=== PATIENT | female | born 1955 | race Caucasian/White ===

== ENCOUNTER 2019-07-10 22:18 | Emergency (ER) | payer MEDICAID ==
[~2019-07-10] VITALS: Ht 152.4 cm; Wt 81.6 kg
[2019-07-10 22:33] VITALS: Ht 152.4 cm; Wt 81.6 kg
[2019-07-11 01:57] VITALS: BP 131/76
== END 2019-07-11 01:57 | disposition home or self-care (01) ==
LOC: ED 22:18
DX: M54.42 Lumbago with sciatica, left side (principal); M19.90 Unspecified osteoarthritis, unspecified site; Z98.890 Other specified postprocedural states
CPT/HCPCS: J2270; Q0162